=== PATIENT | female | born 1960 | race Two or more races ===

== ENCOUNTER 2016-04-15 07:54 | Emergency (ER) | payer OTHER ==
[~2016-04-15] VITALS: Ht 160 cm; Wt 96.6 kg
[2016-04-15 09:02] VITALS: BP 168/68
== END 2016-04-15 10:10 | disposition home or self-care (01) ==
LOC: ER 08:05
DX: S20.211A Contusion of right front wall of thorax, initial encounter (principal); Z88.8 Allergy status to other drugs, medicaments and biological substances; V43.52XA Car driver injured in collision with other type car in traffic accident, initial encounter; Y93.89 Activity, other specified; Y99.8 Other external cause status; Y92.89 Other specified places as the place of occurrence of the external cause
CPT/HCPCS: 93005